=== PATIENT | male | born 1995 | race Caucasian/White ===

== ENCOUNTER 2017-07-31 15:47 | Emergency (ER) | payer OTHER ==
[~2017-07-31] VITALS: Ht 162.6 cm; Wt 77.3 kg
[2017-07-31 15:50] VITALS: BP 136/76; TEMP 97.4
[2017-07-31] MEDS ORDERED: HUMALOG100 U/ML (15:56)
[2017-07-31] MEDS ORDERED: ZOFRAN 4MG T4 MG/TAB PO (16:38)
[2017-07-31 18:54] VITALS: PULSE 92
== END 2017-07-31 18:54 | disposition home or self-care (01) ==
LOC: COL.ER 15:47
DX: E10.65 Type 1 diabetes mellitus with hyperglycemia (principal); Z96.41 Presence of insulin pump (external) (internal); R11.10 Vomiting, unspecified
CPT/HCPCS: J2405; J7030